=== PATIENT | female | born 1980 ===

== ENCOUNTER 2018-01-13 15:26 | Inpatient (IN) | payer MEDICAID ==
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
[2018-01-13 23:13] VITALS: O2SAT 100
[2018-01-14] MEDS ORDERED: Magnesium Hydroxide Susp 30 ml UD PO PRN (00:55)
[2018-01-14] MEDS ORDERED: DiphenhydrAMINE 50 mg/ml Inj IM PRN (00:55)
[2018-01-14] MEDS ORDERED: Alum-Mag Hydrox-Simethicone Susp (30 mL) PO PRN (00:55)
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
[2018-01-14 01:40] LABS: BARBITURATES, UR NEGATIVE (NEGATIVE); BENZODIAZEPINES, UR NEGATIVE (NEGATIVE); OPIATES, UR NEGATIVE (NEGATIVE); PHENCYCLIDINE, UR NEGATIVE (NEGATIVE)
[2018-01-14 06:20] LABS: BASO # 0.1 K/uL (0.0-0.2); BASO % 1.1 % (0.0-2.0); EOS # 0.1 K/uL (0.0-0.7); EOS % 1.9 % (0.0-4.0); HEMOGLOBIN 11.6 g/dL (12.0-16.0); LYMPH # 2.2 K/uL (1.0-4.3); LYMPH % 35.1 % (20.0-40.0); MEAN CELL VOLUME 94.6 fl (81.0-99.0); MEAN CORPUSCULAR HEMOGLOBIN 32.4 pg (27.0-31.0); MEAN CORPUSCULAR HGB CONC 34.3 g/dL (33.0-37.0); MEAN PLATELET VOLUME 7.9 fl (7.2-11.7); MONO # 0.5 K/uL (0.0-0.8); MONO % 7.8 % (0.0-10.0); NEUT # 3.4 K/uL (1.8-7.0); NEUT % 54.1 % (50.0-75.0); NRBC % 0.1 % (0.0-0.0); RBC 3.59 Mil/uL (3.80-5.20); RED CELL DISTRIBUTION WIDTH 12.9 % (11.5-14.5); WHITE BLOOD COUNT 6.3 K/uL (4.8-10.8)
[2018-01-14 06:32] LABS: ALB/GLOB RATIO 1.1 (1.0-2.1); ALBUMIN 3.5 g/dL (3.5-5.0); ALT/SGPT 20 U/L (9-52); AST/SGOT 21 U/L (14-36); BLOOD UREA NITROGEN 22 mg/dl (7-17); CALCIUM 9.3 mg/dL (8.4-10.2); GFR NON-AFRICAN AMERICAN > 60; HDL CHOLESTEROL 57 MG/DL (30-70)
[2018-01-14 06:36] LABS: T4 5.17 ug/dl (5.5-11.0)
[2018-01-14 07:30] LABS: LDL CHOLESTEROL 55 mg/dL (0-129)
--- NOTE | 2018-01-14 07:54 | RAD ---
Date of service: 01/13/2018 PROCEDURE: BILATERAL ANKLES RADIOGRAPHS HISTORY: possible fracture COMPARISON: None available. TECHNIQUE: AP oblique and lateral views of the bilateral ankles have been submitted for interpretation. FINDINGS: Cast obscures fine bone and soft-tissue detail. At the left ankle, there is a fracture identified at the medial left ankle seen in the frontal projection best. Oblique projection is too steep to evaluate. The lateral mortise with the medial and superior mortise appearing unremarkable. No subluxation or dislocation appreciated. At the right ankle, there is no acute fracture and there is no evidence of dislocation or subluxation. Deformity of the distal fibula may reflect old healed fracture though this is not definite. No destructive bony lesion is appreciable and local soft tissues appear unremarkable the ankle mortise appears normal. Radiodensities in the patient's sock obscure fine bony and soft-tissue detail somewhat. IMPRESSION: 1. There is a fracture of the medial ankle which is difficult to localize due to its appearance only in the frontal view. No subluxation or dislocation. Repeat radiograph without cast or CT is advised for added characterization. 2. No fracture or dislocation identified at the right ankle.
--- NOTE | 2018-01-14 07:58 | RAD ---
Date of service: 01/13/2018 PROCEDURE: Left Ankle Radiographs. HISTORY: r/o fracture COMPARISON: Bilateral ankle radiographs 01/13/2018 6:51 p.m.. FINDINGS: BONES: A comminuted, articular, nondisplaced fracture of the navicular bone is appreciated in multiple projections. No definite dislocation or subluxation. Remaining bony elements throughout the left ankle appear intact. JOINTS: No subluxation or dislocation identified. Ankle mortise appears normal. Dome of the talus is unremarkable appearing. SOFT TISSUES: Medial ankle soft tissue edema is identified. OTHER FINDINGS: None. IMPRESSION: Comminuted, articular fracture left navicular bone with left ankle otherwise remarkable for medial soft tissue edema. No dislocation or subluxation.
--- NOTE | 2018-01-14 08:10 | RAD ---
Date of service: 01/13/2018 PROCEDURE: Left Foot Radiographs. HISTORY: r/o fracture COMPARISON: None. FINDINGS: BONES: Comminuted fracture of the navicular bone is appreciated involving the articular surfaces at least with the talus though likely at articulation with the medial and middle cuneiform bones as well. A marker focuses attention to lateral midfoot anatomy which appears unremarkable in all projections. Limited medial ankle/midfoot soft tissue edema is identified. JOINTS: No subluxation or dislocation identified. SOFT TISSUES: As above. OTHER FINDINGS: None. IMPRESSION: Complex comminuted fracture of the navicular bone is identified with local soft tissue edema extending into the medial midfoot soft tissues. No definite additional fracture identified throughout the remainder of the left foot including lateral midfoot. No dislocation or subluxation. If clinical concern for additional fracture remains, then follow-up CT or MRI should be considered.
[2018-01-14] MEDS ORDERED: PAROXETINE 37.5 MG PO SCH (09:00)
[2018-01-14] MEDS ORDERED: BUPROPION 300 MG PO SCH (09:00)
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
[2018-01-14] MEDS: buPROPion SR 150 MG TABLET PO SCH ×2 (10:44→18:01)
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
--- NOTE | 2018-01-14 13:57 | CARD ---
APPROVED REPORT Date of service: 01/14/2018 EKG Measurement Heart [id number] <Conclusion> Normal sinus rhythm Normal ECG
--- NOTE | 2018-01-14 14:15 | CT ---
Date of service: 01/13/2018 PROCEDURE: LEFT ANKLE CT WITHOUT CONTRAST HISTORY: focus on left foot COMPARISON: Left ankle radiographs dated 01/13/2018. TECHNIQUE: A volumetric CT acquisition through the left ankle was performed without intravenous contrast as requested. Multiplanar reformatted series have been submitted for interpretation as well. Contrast Dose: None Radiation dose:Total exam DLP = 278.29 mGy-cm. This CT exam was performed using one or more of the following dose reduction techniques: Automated exposure control, adjustment of the mA and/or kV according to patient size, and/or use of iterative reconstruction technique. FINDINGS: There is a extensive, comminuted articular fracture identified involving the left navicular bone with limited inferior distraction of the major fracture fragment inferolaterally. However, the amount of comminution is more prominent at the medial portion of the navicular bone than lateral segment. Fracture affects articulations with all 3 cuneiform bones as well as the talus. No dislocation identified. There is also a comminuted but nondisplaced fracture identified involving the lateral cuneiform bone affecting articulations with the navicular, cuboid and 4th metatarsal bones. Moderate soft tissue edema is seen surrounding the foot and lower ankle soft tissues with dorsal foot and anterior ankle soft tissues most affected. Ankle mortise appears intact. IMPRESSION: Complex comminuted fractures identified involving the left navicular bone as well as the lateral cuneiform bone as discussed above. Fractures appear predominantly nondisplaced with limited inferior lateral distraction of the dominant fracture fragment at the lateral portion of the navicular bone. Both fractured bones affect articular surfaces as described above. No dislocation or subluxation identified.
--- NOTE | 2018-01-14 15:18 | CP.PCM.CON ---
History of Present Illness - History of Present Illness History of Present Illness: Reason for Consult: per hospital protocol HPI: 37 year old undomiciled female recently discharged from [facility] for aggressive behavior and medication seeking behavior, now admitted to [facility] psych for suicidal ideation. ROS: per HPI all other systems reviewed and negative Past Patient History - Past Social History Smoking Status: Light Smoker < 10 Cigarettes Daily - CARDIAC Hx Hypertension: No - PULMONARY Hx Tuberculosis: No - NEUROLOGICAL Hx Seizures: No - HEENT Hx HEENT Problems: No - RENAL Hx Chronic Kidney Disease: No - HEMATOLOGICAL/ONCOLOGICAL Hx Human Immunodeficiency Virus (HIV): No - INTEGUMENTARY Hx Dermatological Problems: No - MUSCULOSKELETAL/RHEUMATOLOGICAL Hx Arthritis: Yes Hx Fractures: Yes - GENITOURINARY/GYNECOLOGICAL Hx Sexually Transmitted Disorders: No - PSYCHIATRIC Hx Anxiety: Yes Hx Bipolar Disorder: Yes Hx Depression: Yes Hx Post Traumatic Stress Disorder: Yes - SURGICAL HISTORY Hx Tonsillectomy: Yes - ANESTHESIA Hx Anesthesia: Yes Hx Anesthesia Reactions: No Hx Malignant Hyperthermia: No Meds Allergies/Adverse Reactions: Allergies Allergy/AdvReac Type Severity Reaction Status Date / Time No Known Allergies Allergy Verified 01/13/18 15:31 - Medications Medications: Current Medications Acetaminophen (Tylenol 325mg Tab) 650 mg PO Q4 PRN PRN Reason: Pain, moderate (4-7) Al Hydrox/Mg Hydrox/Simethicone (Maalox Plus 30 Ml) 30 ml PO Q4 PRN PRN Reason: Dyspepsia Bupropion HCl (Wellbutrin Sr 150 Mg) 150 mg PO BID [facility] Last Admin: 01/14/18 10:44 Dose: 150 mg Diphenhydramine HCl (Benadryl) 50 mg IM Q6 PRN PRN Reason: Extrapyramidal S/S Unable PO Diphenhydramine HCl (Benadryl) 50 mg PO Q6 PRN PRN Reason: Extrapyramidal Symptoms Diphenhydramine HCl (Benadryl) 50 mg PO HS PRN PRN Reason: Sleep Gabapentin (Neurontin) 600 mg PO TID [facility] Last Admin: 01/14/18 14:01 Dose: 600 mg Haloperidol (Haldol) 5 mg PO Q4 PRN PRN Reason: Agitation Haloperidol Lactate (Haldol) 5 mg IM Q4 PRN PRN Reason: Agitation, Unable to Take PO Lorazepam (Ativan) 2 mg IM Q4 PRN PRN Reason: Anxiety/Agitation,Unable PO Lorazepam (Ativan) 1 mg PO Q8 PRN PRN Reason: Anxiety Last Admin: 01/14/18 10:10 Dose: 1 mg Magnesium Hydroxide (Milk Of Magnesia) 30 ml PO HS PRN PRN Reason: Constipation Nicotine (Nicoderm Cq) 1 patch TD DAILY [facility] Last Admin: 01/14/18 10:43 Dose: 1 patch Paroxetine HCl (Paxil) 40 mg PO DAILY [facility] Last Admin: 01/14/18 10:44 Dose: 40 mg Tramadol HCl (Ultram) 50 mg PO Q8 PRN PRN Reason: Pain, severe (8-10) Physical Exam - Constitutional Appears: Non-toxic, No Acute Distress - Head Exam Head Exam: ATRAUMATIC, NORMOCEPHALIC - Eye Exam Eye Exam: EOMI, Normal appearance, PERRL - ENT Exam ENT Exam: Mucous Membranes Moist, Normal Oropharynx - Respiratory Exam Respiratory Exam: Clear to Auscultation Bilateral, NORMAL BREATHING PATTERN - Cardiovascular Exam Cardiovascular Exam: REGULAR RHYTHM, RRR, +S1, +S2 - GI/Abdominal Exam GI & Abdominal Exam: Normal Bowel Sounds, Soft - Extremities Exam Extremities exam: Positive for: normal capillary refill, pedal pulses present - Back Exam Back exam: absent: CVA tenderness (L), CVA tenderness (R) - Neurological Exam Neurological exam: Alert, Oriented x3 - Psychiatric Exam Psychiatric exam: Normal Affect, Normal Mood - Skin Skin Exam: Dry, Warm Results - Vital Signs Recent Vital Signs: Last Vital Signs Temp 98.5 F 01/14/18 05:35 Pulse 75 01/14/18 05:35 Resp 18 01/14/18 05:35 BP 97/74 L 01/14/18 05:35 Pulse Ox 100 01/14/18 12:37 - Labs Result Diagrams: 01/14/18 06:00 01/14/18 06:00 Labs: Laboratory Results - last 24 hr 01/13/18 01/14/18 01/14/18 23:24 06:00 06:00 WBC 6.3 RBC 3.59 L Hgb 11.6 L Hct 33.9 L MCV 94.6 MCH 32.4 H MCHC 34.3 RDW 12.9 Plt Count 317 MPV 7.9 Neut % (Auto) 54.1 Lymph % (Auto) 35.1 [place] % (Auto) 7.8 Eos % (Auto) 1.9 Baso % (Auto) 1.1 Neut # (Auto) 3.4 Lymph # (Auto) 2.2 [place] # (Auto) 0.5 Eos # (Auto) 0.1 Baso # (Auto) 0.1 Sodium 139 Potassium 4.4 Chloride 104 Carbon Dioxide 27 Anion Gap 12 BUN 22 H Creatinine 0.6 L Est GFR ( Amer) > 60 Est GFR (Non-Af Amer) > 60 Random Glucose 91 Calcium 9.3 Total Bilirubin 0.1 L AST 21 ALT 20 Alkaline Phosphatase 45 Total Protein 6.9 Albumin 3.5 Globulin 3.3 Albumin/Globulin Ratio 1.1 Triglycerides 150 H Cholesterol 127 LDL Cholesterol Direct 55 HDL Cholesterol 57 Thyroxine (T4) 5.17 L TSH 3rd Generation 1.18 Urine Opiates Screen Negative Urine Methadone Screen Negative Ur Barbiturates Screen Negative Ur Phencyclidine Scrn Negative Ur Amphetamines Screen Negative U Benzodiazepines Scrn Negative U Oth Cocaine Metabols Negative U Cannabinoids Screen Negative Assessment & Plan - Assessment and Plan (Free Text) Plan: 37 year old undomiciled female recently discharged from [facility] for aggressive behavior and medication seeking behavior, now admitted to [facility] psych for suicidal ideation. Suicidal Ideation - Management per psych
--- NOTE | 2018-01-15 07:54 | PCM.PYCHPN ---
Psychiatric Progress Note - Psychiatric Progress Note Patient seen today, length of contact: Pt evaluated, case discussed w/ team, chart reviewed Patient Chief Complaint: "I was feeling suicidal." Problems Identified/Issues Discussed: Pt continues to report feeling depressed, anxious and hopeless at times. She denies acute suicidal ideation/plan/intent. She spends most of her time in her room. Patient encouraged to participate in groups. No acute behavioral i ssues. No adverse effects to medications reported. Medication Change: No Medical Record Reviewed: Yes Consults ordered or reviewed: Medicine consult Mental Status Examination - Cognitive Function Orientation: Person, Place, Situation, Time Memory: Intact Attention: WNL Concentration: WNL Association: WNL Fund of Knowledge: WN Decription of patient's judgement and insights: Improving I/J - Mood Mood: Depressed - Affect Affect: Constricted, Depressed - Speech Speech: Appropriate - Formal Thought Process Formal Thought Process: No Impairment Psychotic Thoughts and Behaviors: Denies AH/VH/paranoia/delusions - Suicidal Ideation Suicidal Ideation: No - Homicidal Ideation Homicidal Ideation: No Goal/Treatment Plan - Goal/Treatment Plan Need for Continued Stay: Remain at risks for inpatient hospitalization, Severe depression anxiety Progress Toward Problem(s) and Goals/Treatment Plan: Major Depressive Disorder -Individual and group therapy -Continue Wellbutrin and Paxil -Nicotine patch -Medicine consult -Disposition planning Estimated Date of D/C: 01/19/18 - Smoking Cessation Smoking Cessation Initiated: Yes
[2018-01-15] MEDS: buPROPion SR 150 MG TABLET PO SCH ×2 (08:37→16:35)
[2018-01-16] MEDS: buPROPion SR 150 MG TABLET PO SCH ×2 (08:56→17:57)
--- NOTE | 2018-01-16 10:17 | PCM.PYCHPN ---
Psychiatric Progress Note - Psychiatric Progress Note Patient seen today, length of contact: Pt evaluated, case discussed w/ team, chart reviewed Patient Chief Complaint: "I was feeling suicidal." Problems Identified/Issues Discussed: Pt continues to report feeling depressed, anxious and hopeless. She denies acute suicidal ideation/plan/intent. She reports poor sleep and states the Doxepin was helpful in the past for sleep. Patient encouraged to participate in groups. No acute behavioral issues. No adverse effects to medications reported. Medication Change: Yes (Start Doxepin) Medical Record Reviewed: Yes Consults ordered or reviewed: Medicine consult Mental Status Examination - Cognitive Function Orientation: Person, Place, Situation, Time Memory: Intact Attention: WNL Concentration: WNL Association: WNL Fund of Knowledge: [facility] Decription of patient's judgement and insights: Improving I/J - Mood Mood: Depressed - Affect Affect: Constricted, Depressed - Speech Speech: Appropriate - Formal Thought Process Formal Thought Process: No Impairment Psychotic Thoughts and Behaviors: Denies AH/VH/paranoia/delusions - Suicidal Ideation Suicidal Ideation: No - Homicidal Ideation Homicidal Ideation: No Goal/Treatment Plan - Goal/Treatment Plan Need for Continued Stay: Remain at risks for inpatient hospitalization, Severe depression anxiety Progress Toward Problem(s) and Goals/Treatment Plan: Major Depressive Disorder -Individual and group therapy -Continue Wellbutrin and Paxil -Start Doxepin HS -Nicotine patch -Medicine consult -Podiatry consult -Disposition planning Estimated Date of D/C: 01/19/18
[2018-01-16 19:04] LABS: URINE BILIRUBIN NEGATIVE (NEGATIVE); URINE BLOOD NEGATIVE (NEGATIVE); URINE CLARITY CLEAR (Clear); URINE COLOR STRAW (YELLOW); URINE GLUCOSE (UA) NEG (Normal); URINE LEUKOCYTE ESTERASE NEG Leu/uL (Negative); URINE PROTEIN NEGATIVE (NEGATIVE); URINE UROBILINOGEN 0.2-1.0 mg/dL (0.2-1.0)
[2018-01-17] MEDS: buPROPion SR 150 MG TABLET PO SCH ×2 (09:13→16:15)
--- NOTE | 2018-01-17 09:53 | PCM.PYCHPN ---
Psychiatric Progress Note - Psychiatric Progress Note Patient seen today, length of contact: Pt evaluated, case discussed w/ team, chart reviewed Patient Chief Complaint: Depression Problems Identified/Issues Discussed: Pt continues to report feeling depressed and anxious, but is more hopeful and goal oriented. She denies acute SI/HI. She continues to report poor sleep at night. No adverse effects to medications reported. Medication Change: Yes (Increase Wellbutrin) Medical Record Reviewed: Yes Consults ordered or reviewed: Medicine consult Mental Status Examination - Cognitive Function Orientation: Person, Place, Situation, Time Memory: Intact Attention: WNL Concentration: WNL Association: WNL Fund of Knowledge: [facility] Decription of patient's judgement and insights: Improving I/J - Mood Mood: Depressed - Affect Affect: Constricted, Depressed - Speech Speech: Appropriate - Formal Thought Process Formal Thought Process: No Impairment Psychotic Thoughts and Behaviors: Denies AH/VH/paranoia/delusions - Suicidal Ideation Suicidal Ideation: No - Homicidal Ideation Homicidal Ideation: No Goal/Treatment Plan - Goal/Treatment Plan Need for Continued Stay: Remain at risks for inpatient hospitalization, Severe depression anxiety Progress Toward Problem(s) and Goals/Treatment Plan: Major Depressive Disorder -Individual and group therapy -Increase Wellbutrin -Continue Paxil and Doxepin -Nicotine patch -Medicine consult -Podiatry consult -Disposition planning Estimated Date of D/C: 01/19/18
[2018-01-18 05:55] VITALS: PULSE 78
--- NOTE | 2018-01-18 08:25 | PCM.PYCHPN ---
Psychiatric Progress Note - Psychiatric Progress Note Patient seen today, length of contact: Pt evaluated, case discussed w/ team, chart reviewed Patient Chief Complaint: Depression Problems Identified/Issues Discussed: Pt continues to report feeling depressed and is worried about her social stressors and her foot. She denies acute AH/VH/SI/HI and is more goal oriented. She continues to report poor sleep at night. No adverse effects to medications reported. Medication Change: Yes (Increase Wellbutrin) Medical Record Reviewed: Yes Consults ordered or reviewed: Medicine consult Mental Status Examination - Cognitive Function Orientation: Person, Place, Situation, Time Memory: Intact Attention: WNL Concentration: WNL Association: [facility] Fund of Knowledge: [facility] Decription of patient's judgement and insights: Improving I/J - Mood Mood: Depressed - Affect Affect: Constricted, Depressed - Speech Speech: Appropriate - Formal Thought Process Formal Thought Process: No Impairment Psychotic Thoughts and Behaviors: Denies AH/VH/paranoia/delusions - Suicidal Ideation Suicidal Ideation: No - Homicidal Ideation Homicidal Ideation: No Goal/Treatment Plan - Goal/Treatment Plan Need for Continued Stay: Remain at risks for inpatient hospitalization, Severe depression anxiety Progress Toward Problem(s) and Goals/Treatment Plan: Major Depressive Disorder -Individual and group therapy -Increase Wellbutrin -Continue Paxil and Doxepin -Nicotine patch -Medicine consult -Podiatry consult -Disposition planning
[2018-01-18 15:26] VITALS: BP 144/67; RESP 20; TEMP 97.7
--- NOTE | 2018-01-18 15:49 | RAD ---
Date of service: 01/18/2018 PROCEDURE: CHEST RADIOGRAPH, 1 VIEW HISTORY: Routine COMPARISON: None available. FINDINGS: LUNGS: Clear. PLEURA: No pneumothorax or pleural fluid seen. CARDIOVASCULAR: Normal. OSSEOUS STRUCTURES: No significant abnormalities. VISUALIZED UPPER ABDOMEN: Normal. OTHER FINDINGS: None. IMPRESSION: No active disease.
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
== END 2018-01-19 16:40 | disposition home or self-care (01) | DRG 426 ==
LOC: H.ER 15:26 → H.ERHOLD 19:56 → H.STEP 01-14 00:46
PROVIDERS: ADMIT Psychiatry & Neurology Psychiatry; ATTEND Psychiatry & Neurology Psychiatry
PROC: GZHZZZZ Group Psychotherapy (ICD-10-PCS; principal; 2018-01-15)
PROC: GZ51ZZZ Individual Psychotherapy, Behavioral (ICD-10-PCS; 2018-01-15)
DX: F32.9 Major depressive disorder, single episode, unspecified (principal); F31.9 Bipolar disorder, unspecified; F43.10 Post-traumatic stress disorder, unspecified; R45.851 Suicidal ideations; S92.252A Displaced fracture of navicular [scaphoid] of left foot, initial encounter for closed fracture; X58.XXXA Exposure to other specified factors, initial encounter; Y93.9 Activity, unspecified; Y92.9 Unspecified place or not applicable; S93.401A Sprain of unspecified ligament of right ankle, initial encounter; Z59.0 Homelessness; Z72.0 Tobacco use; Z76.5 Malingerer [conscious simulation]; Z82.5 Family history of asthma and other chronic lower respiratory diseases; F41.9 Anxiety disorder, unspecified; M47.9 Spondylosis, unspecified; Z79.899 Other long term (current) drug therapy

== ENCOUNTER 2018-02-08 10:18 | Day surgery (SDC) | payer MEDICAID ==
[2018-02-03 10:32] VITALS: BMI 35.4
[~2018-02-08 10:18] MED LIST: Bupivacaine 0.5% Inj(30mL) ONE; Lidocaine 1% Inj (20ml) ONE
[2018-02-08 11:18] VITALS: RESP 18
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
--- NOTE | 2018-02-08 11:36 | CP.SDSHP ---
Same Day Surgery H & P - History Proposed Procedure: Left foot ORIF with application of external fixation Pre-Op Diagnosis: Left foot closed navicular comminuted fracture - Allergies Allergies: Allergies No Known Allergies Allergy (Verified 02/08/18 10:36) - Physical Exam Vital Signs: Vital Signs 02/08/18 02/08/18 11:16 11:21 Temperature 98.4 F Pulse Rate 76 76 Respiratory 18 Rate Blood Pressure 119/78 O2 Sat by Pulse 99 Oximetry Neuro: WNL Heart: WNL Lungs: WNL GI: WNL - Impression Pt. Evaluated Today:Candidate for Anesthesia & Procedure: Yes - Date & Time Date: 02/08/18 Time: 11:36 Short Stay Discharge - Short Stay Discharge Admitting Diagnosis/Reason for Visit: S92.255,S92.225 Disposition: HOME/ ROUTINE Additional Instructions (Diet, Activity): -Patient in good/stable condition for discharge home -Pt to resume medications per medical reconciliation -Resume regular diet -Please keep dressing clean, dry, & intact to surgical site -Use plastic bag over bandage for showering -Remain nonweightbearing to left lower extremity -Wear post op shoe at all times when ambulating -Call clinic if you see signs of infection (redness, swelling, malodor) -Please make an appointment to see Dr. Vallejo in office/clinic within 1 week for post-op check Progress Note/Discharge Note with Instructions: - Patient evaluated bedside in recovery s/p left navicular fracture external fixation. - After surgical procedure patient in NAD - (+) Void, (+) Appetite - Capillary refill time <3s and NVS intact. - Patient denies complaints at this time. - Post operative instructions and plan of care explained to patient at length. - Patient. acknowledges verbal understanding. - Patient stable for DC per podiatric surgery
[2018-02-08] MEDS ORDERED: ceFAZolin 2 GM in Sodium Chloride 0.9% 100 ML IVPB ONE (11:49)
[2018-02-08] MEDS ORDERED: Bupivacaine 0.5% Inj(30mL) IJ ONE (11:49)
[2018-02-08] MEDS ORDERED: Sodium Chloride 0.9% 1,000 ML IV SCH (12:00)
[2018-02-08] MEDS ORDERED: Propofol 10 mg/ml Inj (20 ML) ONE (13:13)
[2018-02-08] MEDS ORDERED: Rocuronium 10 mg/ml (5 ml) ONE (13:14)
[2018-02-08] MEDS ORDERED: Lidocaine 4% (Laryng-O-Jet) Kit MM ONE (13:14)
[2018-02-08] MEDS ORDERED: Midazolam 2 MG/2 ML VIAL ONE (13:14)
[2018-02-08] MEDS ORDERED: ePHEDrine 50 mg/ml Inj ONE ×2 (13:14→14:01)
[2018-02-08] MEDS ORDERED: Succinylcholine 200 mg/10 ml Inj IV ONE (13:17)
[2018-02-08] MEDS ORDERED: Ropivacaine 0.5% 30ML IV ONE ×2 (13:30→15:19)
[2018-02-08] MEDS ORDERED: Lactated Ringer's 1,000 ML IV ONE (13:30)
[2018-02-08] MEDS ORDERED: Dexamethasone 4 mg/1 ml ONE (14:30)
[2018-02-08] MEDS ORDERED: Bacitracin Ointment 30 GM TUBE ONE (14:57)
--- NOTE | 2018-02-08 15:42 | PCM.SURG1 ---
Surgeon's Initial Post Op Note - Surgeon's Notes Surgeon: Dr. Paul Vallejo, DPM Court Collections Officer: Dr. Gage Carlos PGY-3; Dr. Melita Barron PGY-3; Dr. Jessica Whalen PGY-3 Type of Anesthesia: General Endo, Block Regional (saphenous and popliteal) Anesthesia Administered By: Dr. Carrie MD Pre-Operative Diagnosis: 1) comminuted displaced fracture of navicular 2) displaced fracture of lateral cuneiform all left foot Operative Findings: see op report Post-Operative Diagnosis: 1) comminuted displaced fx of navicular left foot. 2) displaced fx of lateral cuneiform left foot. 3) possible fracture of talar head/neck left foot Operation Performed: 1) distraction of comminuted navicular fracture inlcuding talonavicular and navicular-medial cuneiform joint using mini external fixator left foot. 2) ORIF lateral cuneiform fx using screw (3.0 x 26mm) Specimen/Specimens Removed: none Estimated Blood Loss: EBL {In ML}: 2 Blood Products Given: N/A Drains Used: No Drains Post-Op Condition: Good Date of Surgery/Procedure: 02/08/18 Time of Surgery/Procedure: 13:00
[2018-02-08] MEDS ORDERED: Oxycodone/Acetaminophen 5/325 mg Tab PO PRN ×2 (15:45)
[2018-02-08] MEDS ORDERED: Lactated Ringer's 1,000 ML IV SCH (16:15)
--- NOTE | 2018-02-08 16:22 | PCM.ANESB7 ---
Adductor Canal Block - Adductor Canal Block Date of Procedure: 02/08/18 Anesthiologist: Dr. Ocampo Pre-Procedure Diagnosis: S/P ORIF left foot Post-Procedure Diagnosis: S/P ORIF left foot Procedure Performed: Adductor Canal Block Left - Procedure Adductor Canal Block: The procedure was explained to the patient that it is for the post-operative pain management. Consent was obtained after a thorough discussion with the patient regarding the benefits and possible complications of local anesthetic adductor canal block of the femoral nerve. Standard monitors, as defined by the ASA, were applied to the patient. Time-out was held with the circulating nurse to confirm the appropriate block. After the surgery while still under general anesthesia, the patient in supine position with and the operative leg was flexed slightly at the knee and externally rotated as needed, and was kept anatomically stable. The mid-thigh of the left lower extremity was exposed. The ultrasound transducer was then applied transversely along the medial aspect, about midway down the thigh and the femoral artery and vein were identified in appropriate relation with the sartorius muscle. At this time, the femoral nerve was visualized lateral to the femoral artery within the canal. After thorough identification, this area area was prepped with Chloroprep solution. At this point, a #20 gauge Stimuplex 4-inch needle was inserted in-plane in a [id number] orientation, and advanced toward the femoral nerve. Advancement was performed carefully under direct ultrasound visualization. After negative aspiration, 5cc of 0.5% ropivacaine was injected and this was followed with 10cc of 0.5% ropivacaine. Under ultrasound guidance the local anesthetics were observed spreading around the femoral nerve. The needle was removed intact and sterile dressing was applied. The patient had stable vital signs, was conscious and in no apparent distress. The patient tolerated the femoral nerve block well with stable vital signs and was prepared for subsequent surgery
--- NOTE | 2018-02-08 16:26 | PCM.ANESB2 ---
Popliteal Nerve Block - Popliteal Nerve Block Date of Procedure: 02/08/18 Anesthesiologist: Dr. Ocampo Pre-Procedure Diagnosis: S/P ORIF left foot Post-Procedure Diagnosis: S/P ORIF left foot Procedure Performed: Popliteal Nerve Block Left - Procedure Popliteal Nerve Block: This procedure was explained to the patient that it is for post-operative pain management. Consent was obtained after a thorough discussion with the patient regarding the benefits and possible complications of local anesthetic block of the sciatic nerve at the popliteal level. The patient was brought to the operating room and standard monitors are applied. Time-out was held with the circulating nurse to confirm the correct surgery and the appropriate block. After the surgery while still under general anesthesia, patient's operative leg was gently raised and supported and the groove in between the biceps femoris and vastus lateralis muscles was carefully palpated. The skin approximately 8cm above the popliteal crease was then marked. The ultrasound transducer was then applied to the posterior thigh approximately 8cm above the popliteal crease in the transverse plane and the sciatic nerve before its division was visualized lateral to the popliteal artery and in between the bicep femoris and semimembranosus/semitendinosus muscles. After identification, the lateral porti on of the thigh was prepped with Chloraprep solution. At this point, a # 20 gauge Stimuplex insulated 4 inch needle was inserted into pre-marked area and advanced in a perpendicular direction. The needle was inserted above the ultrasound transducer in-plane towards the sciatic nerve in a [id number] direction. Needle advancement was performed carefully under direct ultrasound visualization. Nerve stimulator was used and dorsiflexion of the left foot was elicited at a current of 0.3 MA. After repeated negative aspiration, 5cc of 0.5% ropivacaine was injected and this was flowed with 20cc of 0.5% ropivacaine. Under ultrasound guidance the local anesthetics were observed surrounding sciatic nerve . The needle was removed intact and sterile dressing was applied. The patient tolerated the popliteal nerve block well with stable vital signs and was subsequently awaken from anesthesia. Then transported to PACU.
--- NOTE | 2018-02-08 17:10 | RAD ---
Date of service: 02/08/2018 PROCEDURE: Fluoroscopic assistance in excess of 1 hour. HISTORY: LEFT FOOT COMPARISON: None TECHNIQUE: Standard protocol for this study/examination. FINDINGS: Total fluoroscopic time (continuous mode) utilized during the procedure 134.9 seconds. IMPRESSION: Submitted images from the current procedure: 12.0
--- NOTE | 2018-02-08 17:35 | RAD ---
Date of service: 02/08/2018 PROCEDURE: Left Foot Radiographs. HISTORY: s/p left foot surgery COMPARISON: None. FINDINGS: BONES: Anatomic alignment of major fracture fragments of the scaphoid. No evidence of orthopedic hardware failure. JOINTS: Normal. SOFT TISSUES: Normal. OTHER FINDINGS: None. IMPRESSION: Satisfactory postoperative status.
[2018-02-09 00:48] VITALS: BP 126/66; PULSE 102; TEMP 97.8; O2SAT 10
--- NOTE | 2018-02-12 10:08 | OP ---
PROCEDURE DATE: 02/08/2018 PREOPERATIVE DIAGNOSES: 1. Comminuted displaced fracture of navicular bone, left foot. 2. Displaced fracture of lateral cuneiform bone, left foot. POSTOPERATIVE DIAGNOSES: 1. Comminuted displaced fracture of navicular bone, left foot. 2. Displaced fracture of lateral cuneiform bone, left foot. 3. Possible fracture of tailor head, left foot. PROCEDURES PERFORMED: 1. Distraction of comminuted navicular fracture using mini external fixator, left foot. 2. Open reduction with internal fixation of lateral cuneiform fracture using screw fixation, left foot. SURGEON: Paul Vallejo DPM ASSISTANTS: TABBY LindseyM, PGY-3 ;Shanon Barron DPM, PGY-3; Fanta Whalen, PGY-3, DPM ANESTHESIA: Popliteal block and adductor canal block. CONTROL SYSTEMS SPECIALIST: Tonya Butler MD INDICATION: The patient is a 37-year-old female with the above-mentioned diagnoses. The patient has been seen in the [facility] with Dr. Vallejo. Of note, the patient did suffer an injury to her left foot approximately three weeks prior and now requires surgical intervention for the injury. The patient signed the consent after careful explanation of all risks, benefits, complications and alternatives for the surgical procedure. No guarantees were given nor implied. A 2 g of Ancef IV was given to the patient one and half hour prior to the procedure. NPO status was confirmed prior to bringing the patient into the operating room. PREPARATION: The patient was brought into the operating room and placed on the operating room table in supine position. A well-padded pneumatic thigh tourniquet was placed to the patient's left thigh with plenty of Webril cast padding. After induction of anesthesia, the left foot was then prepped and draped in the usual sterile manner. Esmarch bandage was utilized to exsanguinate the patient's left foot . The pneumatic thigh tourniquet was then inflated to 350 mmHg and the procedure was begun. DESCRIPTION OF PROCEDURE: PROCEDURE #1: Distraction of comminuted navicular fracture using mini external fixator of the patient's left foot: Our attention was now directed to the patient's left foot at the level of the patient's medial aspect of the mid foot. Under intraoperative fluoroscopy guidance, our landmarks were identified including the head and neck of the tailor and in addition the distal one-third of the medial cuneiform. Next, a [employer] CORETRAK mini external fixation device was then chosen with the distance between the proximal and distal pin set a distance of 15 mm. Next, using intraoperative fluoroscopy guidance, three half pins from the set were then drilled into the tailor head and body. Next, two half pins were then driven into the distal one-third of the medial cuneiform. All of these pins were driven. Stab incision in the skin directly down to the level of bone. The CORETRAK device was then placed over the pin at approximately two fingers breadth distance away from the level of skin. The device was then locked using the screwdriver provided in the kit. Under intraoperative fluoroscopy guidance, a total of 5 mm of distraction was achieved between the talonavicular and the navicular medial cuneiform joint. At this time, it did appear to be noted that there was excellent distraction of this joint with much improved articular alignment of the navicular fracture fragment. However, using intraoperative fluoroscopy in this case, it should be noted that it did appear to be possible fracture fragment especially for a new injury of the tailor head that was not appreciated on prior plain film x-ray and CT imaging from the original injury. PROCEDURE #2: Open reduction with internal fixation of lateral cuneiform, left foot: Under intraoperative fluoroscopic guidance, a stab incision was made over the dorsal aspect of the lateral cuneiform. Care was taken to avoid all vital neurovascular structures. Blunt dissection was now used down to the level of the bone and a K-wire from the cannulated set was then driven from dorsal to plantar across the transverse fracture of the lateral cuneiform. Once the correct placement of the K-wire was achieved, a screw was chosen and using standard AO principles and techniques, measuring 3.0mm x 26 mm partially threaded cannulated screw was then inserted across the fracture site with excellent correction and compression achieved. The K-wire was then removed and passed from the operative field. The surgical site was then flushed with copious amount of sterile normal saline solution and the skin was reapproximated using 4-0 nylon suture. Postoperative bandages to the pin sites included Betadine-soaked Adaptic and 4 x 4 gauze, Betadine-soaked Adaptic was then placed over the lateral cuneiform incision with gauze overlying that, Kerlix, Ami and a well-padded posterior splint with the foot held in a neutral position were then applied to the left lower extremity. POSTOPERATIVE CONDITION: The patient tolerated the procedure and anesthesia well with no apparent complications or complaints. The patient was escorted from the OR to the recovery room with vital signs stable and neurovascular structures intact to the patient's left foot. Of note, prior to leaving the operative unit, the anesthesia team did perform an adductor canal and popliteal block for pain control to the patient's left lower extremity. The patient will be strictly nonweightbearing to the left foot with crutches. The patient will follow up in the clinic with Dr. Vallejo within one week. Viviana Carlos DPM, Paul Vallejo DPM EDU
== END 2018-02-08 21:03 | disposition home or self-care (01) ==
LOC: H.OPSURG 10:18
PROVIDERS: ATTEND Podiatrist Foot & Ankle Surgery
DX: S92.252A Displaced fracture of navicular [scaphoid] of left foot, initial encounter for closed fracture (principal); S92.222A Displaced fracture of lateral cuneiform of left foot, initial encounter for closed fracture; X58.XXXA Exposure to other specified factors, initial encounter; M19.90 Unspecified osteoarthritis, unspecified site; F32.9 Major depressive disorder, single episode, unspecified; E66.9 Obesity, unspecified
CPT/HCPCS: 28465; 73630; 76001; 97161; G8978; G8979; G8980; J0330; J0690; J1100; J1170; J1885; J2001; J2250; J2405; J2704; J3010; J7120

== ENCOUNTER 2018-03-24 15:20 | Emergency (ER) | payer MEDICAID ==
[2018-03-24 15:21] VITALS: BMI 35.4
[2018-03-24 16:56] VITALS: TEMP 98.6
--- NOTE | 2018-03-24 17:49 | ED PDOC ---
Lower Extremity Pain/Injury Time Seen by Provider: 03/24/18 17:30 Chief Complaint (Nursing): Lower Extremity Problem/Injury Chief Complaint (Provider): Cellulitis History Per: Patient History/Exam Limitations: no limitations Onset/Duration Of Symptoms: Days Current Symptoms Are (Timing): Still Present Additional Complaint(s): 37 year old female presents to the ED for an evaluation of left foot pain. Patient states she had a foot surgery on February 08 and she is scheduled for another surgery on April 19. Patient was referred by the verse writer to get blood work in ED for possible infection. Otherwise, patient denies fever or chills. PMD: Paul Vallejo Past Medical History Reviewed: Historical Data, Nursing Documentation, Vital Signs Vital Signs: Last Vital Signs Temp 98.6 F 03/24/18 16:53 Pulse 98 H 03/24/18 16:53 Resp 16 03/24/18 16:53 BP 129/80 03/24/18 16:53 Pulse Ox 99 03/24/18 16:53 - Medical History PMH: Anemia (no meds), Anxiety, Arthritis, Bipolar Disorder, Depression, Fractures, Post Traumatic Stress Disorder Denies: Diabetes, Hepatitis, HIV, HTN, Chronic Kidney Disease, Seizures, Sexually Transmitted Disease - Surgical History Surgical History: Tonsillectomy - Family History Family History: States: Unknown Family Hx - Immunization History Hx Tetanus Toxoid Vaccination: No Hx Influenza Vaccination: No Hx Pneumococcal Vaccination: No - Home Medications Home Medications: Ambulatory Orders Medication Instructions Recorded Ibuprofen [Motrin Tab] 800 mg PO Q8 PRN tab 01/19/18 Amoxicillin/Clavulanate [Augmentin 875 mg PO BID 02/08/18 875 MG-125 MG Tab] Bupropion HCl [Wellbutrin Sr] 300 mg PO DAILY 02/08/18 Copper Gluconate [Copper] 2 mg PO DAILY 02/08/18 Doxepin [Sinequan] 100 mg PO HS 02/08/18 FLUoxetine [Fluoxetine HCl] 20 mg PO BID 02/08/18 Gabapentin 800 mg PO TID 02/08/18 Magnesium Oxide [Magnesium] 400 mg PO DAILY 02/08/18 Nicotine 21 mg/24 hr [Nicoderm CQ] 21 mg TD DAILY MDD 2 patch 02/08/18 PARoxetine CR [Paxil CR] 40 mg PO DAILY 02/08/18 Rivaroxaban [Xarelto] 15 mg PO DAILY 02/08/18 oxyCODONE/Acetaminophen [Percocet 1 tab PO Q6 PRN 02/08/18 5/325 mg Tab] traMADol [Ultram] 50 mg PO QID 02/08/18 Cephalexin [cephalexin] 500 mg PO QID #40 cap 03/24/18 Ciprofloxacin [Cipro] 500 mg PO BID #14 tab 03/24/18 oxyCODONE/Acetaminophen [Percocet 1 ea PO QID #16 tab 03/24/18 5/325 mg Tab] - Allergies Allergies/Adverse Reactions: Allergies Allergy/AdvReac Type Severity Reaction Status Date / Time No Known Allergies Allergy Verified 02/08/18 10:36 Review of Systems ROS Statement: Except As Marked, All Systems Reviewed And Found Negative Constitutional: Negative for: Fever, Chills Musculoskeletal: Positive for: Foot Pain (left) Physical Exam - Reviewed Nursing Documentation Reviewed: Yes Vital Signs Reviewed: Yes - Physical Exam Appears: Positive for: Well, Non-toxic, No Acute Distress Head Exam: Positive for: ATRAUMATIC, NORMAL INSPECTION, NORMOCEPHALIC Skin: Positive for: Normal Color, Warm, Dry. Negative for: Rash Cardiovascular/Chest: Positive for: Regular Rate, Rhythm. Negative for: Murmur Respiratory: Positive for: Normal Breath Sounds. Negative for: Decreased Breath Sounds, Wheezing, Respiratory Distress Extremity: Positive for: Tenderness (left foot medial malleolus), Other (surgi alesha hardwire placed externally on left foot) Neurologic/Psych: Positive for: Alert, Oriented (x3) - Laboratory Results Result Diagrams: 03/24/18 19:13 03/24/18 19:13 - ECG O2 Sat by Pulse Oximetry: 99 (RA) Pulse Ox Interpretation: Normal Medical Decision Making Medical Decision Making: Time: 1740 Initial Impression: left foot pain Initial Plan: CMP CBC w/ Differential Culture Blood Urinalysis Reevaluation Scribe Attestation: Documented by Torey Alvarado, acting as a scribe for Hayden Reed PA-C. Provider Scribe Attestation: All medical record entries made by the Scribe were at my direction and personally dictated by me. I have reviewed the chart and agree that the record accurately reflects my personal performance of the history, physical exam, medical decision making, and the department course for this patient. I have also personally directed, reviewed, and agree with the discharge instructions and disposition. Disposition - Clinical Impression Clinical Impression: Cellulitis - Patient ED Disposition Is Patient to be Admitted: No Comment: Discussed case with podiatry resident; pt will follow up with podiatry clinic on ThursdayMar 29 and patient is aware of this; rx cipro and keflex; percocet prn Doctor Will See Patient In The: Office Counseled Patient/Family Regarding: Studies Performed, Diagnosis, Need For Followup, Rx Given - Disposition Disposition: Routine/Home Disposition Time: 20:28 Condition: STABLE Prescriptions: Cephalexin [cephalexin] 500 mg PO QID #40 cap Ciprofloxacin [Cipro] 500 mg PO BID #14 tab oxyCODONE/Acetaminophen [Percocet 5/325 mg Tab] 1 ea PO QID #16 tab Forms: [facility] ([place]i)
[2018-03-24] MEDS ORDERED: Morphine 4 MG/ML VIAL IVP ONE (17:50)
[2018-03-24] MEDS ORDERED: ceFAZolin IV 1 gm in Dextrose 1 GM/50 ML BAG IVPB STA (17:54)
[2018-03-24] MEDS ORDERED: Morphine 4 MG/ML VIAL ONE (17:57)
[2018-03-24] MEDS ORDERED: ceFAZolin IV 1 gm in Dextrose 1 GM/50 ML BAG IVPB ONE (17:58)
[2018-03-24 19:20] LABS: BASO # 0.1 K/uL (0.0-0.2); BASO % 0.9 % (0.0-2.0); EOS # 0.1 K/uL (0.0-0.7); EOS % 0.6 % (0.0-4.0); HEMOGLOBIN 11.9 g/dL (12.0-16.0); LYMPH % 24.2 % (20.0-40.0); MEAN CELL VOLUME 90.6 fl (81.0-99.0); MEAN CORPUSCULAR HEMOGLOBIN 29.9 pg (27.0-31.0); MEAN PLATELET VOLUME 7.4 fl (7.2-11.7); MONO # 0.8 K/uL (0.0-0.8); MONO % 9.2 % (0.0-10.0); NEUT # 5.5 K/uL (1.8-7.0); NEUT % 65.1 % (50.0-75.0); RBC 3.98 Mil/uL (3.80-5.20); RED CELL DISTRIBUTION WIDTH 12.4 % (11.5-14.5); WHITE BLOOD COUNT 8.4 K/uL (4.8-10.8)
[2018-03-24 19:29] LABS: SQUAMOUS EPITHIAL 22 /hpf (0-5); URINE BACTERIA MANY (<OCC); URINE BILIRUBIN NEGATIVE (NEGATIVE); URINE BLOOD NEGATIVE (NEGATIVE); URINE CLARITY CLOUDY (Clear); URINE COLOR AMBER (YELLOW); URINE GLUCOSE (UA) NEG (NEGATIVE); URINE LEUKOCYTE ESTERASE LARGE Leu/uL (Negative); URINE PROTEIN 100 mg/dL (NEGATIVE); URINE UROBILINOGEN 0.2-1.0 mg/dL (0.2-1.0)
[2018-03-24 19:48] LABS: ALB/GLOB RATIO 1.2 (1.0-2.1); ALBUMIN 4.4 g/dL (3.5-5.0); ALT/SGPT 16 U/L (9-52); AST/SGOT 20 U/L (14-36); BLOOD UREA NITROGEN 21 mg/dl (7-17); CALCIUM 9.5 mg/dL (8.4-10.2); GFR NON-AFRICAN AMERICAN > 60
[2018-03-24 20:53] VITALS: BP 117/76; PULSE 73; RESP 17; O2SAT 100
== END 2018-03-24 20:53 | disposition home or self-care (01) ==
LOC: H.ER 15:20
DX: L03.90 Cellulitis, unspecified (principal)
CPT/HCPCS: 80053; 81003; 85025; 87040; 96374; 96375; 99284; J0690; J2270

== ENCOUNTER 2018-04-14 12:15 | Emergency (ER) | payer MEDICAID ==
[2018-04-14 12:16] VITALS: BMI 35.4
[2018-04-14 12:46] VITALS: PULSE 92; RESP 17; TEMP 97.9; O2SAT 98
[2018-04-14 13:01] VITALS: BP 118/70
--- NOTE | 2018-04-14 13:08 | ED PDOC ---
Lower Extremity Pain/Injury Time Seen by Provider: 04/14/18 13:00 Chief Complaint (Nursing): Lower Extremity Problem/Injury Chief Complaint (Provider): Lower Extremity Problem/Injury History Per: Patient History/Exam Limitations: no limitations Onset/Duration Of Symptoms: Days Current Symptoms Are (Timing): Still Present Additional Complaint(s): Patient is a 37 y/o female with a PMHx of anemia, anxiety, arthritis, bipolar disorder, depression, post traumatic stress disorder, and fractures who presents to the ED for evaluation of left foot pain and infection ongoing for the past few days. Patient had surgery on her left foot on 02/08/2018. Patient was prescribed Keflex and Cipro on 03/24/2018, which she recently finished. Patient was also given Percocet for pain control. Patient states she took two Advil today without any relief. Has ran out of percocet. Patient has an appointment with podiatry clinic today at 1400. PCP: None Provided Past Medical History Vital Signs: Last Vital Signs Temp 97.9 F 04/14/18 12:42 Pulse 92 H 04/14/18 12:42 Resp 17 04/14/18 12:42 BP 118/70 04/14/18 13:01 Pulse Ox 98 04/14/18 12:42 - Medical History PMH: Anemia (no meds), Anxiety, Arthritis, Bipolar Disorder, Depression, Fractures, Post Traumatic Stress Disorder Denies: Diabetes, Hepatitis, HIV, HTN, Chronic Kidney Disease, Seizures, Sexually Transmitted Disease - Surgical History Surgical History: Tonsillectomy - Family History Family History: States: Unknown Family Hx - Immunization History Hx Tetanus Toxoid Vaccination: No Hx Influenza Vaccination: No Hx Pneumococcal Vaccination: No - Home Medications Home Medications: Ambulatory Orders Medication Instructions Recorded RX: Ibuprofen [Motrin Tab] 800 mg PO Q8 PRN tab 01/19/18 Amoxicillin/Clavulanate [Augmentin 875 mg PO BID 02/08/18 875 MG-125 MG Tab] Bupropion HCl [Wellbutrin Sr] 300 mg PO DAILY 02/08/18 Copper Gluconate [Copper] 2 mg PO DAILY 02/08/18 FLUoxetine [Fluoxetine HCl] 20 mg PO BID 02/08/18 Magnesium Oxide [Magnesium] 400 mg PO DAILY 02/08/18 Nicotine 21 mg/24 hr [Nicoderm CQ] 21 mg TD DAILY MDD 2 patch 02/08/18 RX: Doxepin [Sinequan] 100 mg PO HS 02/08/18 RX: Gabapentin 800 mg PO TID 02/08/18 RX: PARoxetine CR [Paxil CR] 40 mg PO DAILY 02/08/18 RX: traMADol [Ultram] 50 mg PO QID 02/08/18 Rivaroxaban [Xarelto] 15 mg PO DAILY 02/08/18 oxyCODONE/Acetaminophen [Percocet 1 tab PO Q6 PRN 02/08/18 5/325 mg Tab] Cephalexin [cephalexin] 500 mg PO QID #40 cap 03/24/18 RX: Ciprofloxacin [Cipro] 500 mg PO BID #14 tab 03/24/18 oxyCODONE/Acetaminophen [Percocet 1 ea PO QID #16 tab 03/24/18 5/325 mg Tab] Ibuprofen [Motrin] 600 mg PO Q8 PRN #21 tab 04/14/18 - Allergies Allergies/Adverse Reactions: Allergies Allergy/AdvReac Type Severity Reaction Status Date / Time No Known Allergies Allergy Verified 04/14/18 12:46 Review of Systems ROS Statement: Except As Marked, All Systems Reviewed And Found Negative Constitutional: Negative for: Fever, Chills Musculoskeletal: Positive for: Foot Pain (left) Physical Exam - Reviewed Nursing Documentation Reviewed: Yes Vital Signs Reviewed: Yes - Physical Exam Appears: Positive for: No Acute Distress Head Exam: Positive for: ATRAUMATIC, NORMAL INSPECTION, NORMOCEPHALIC Skin: Positive for: Normal Color, Warm Eye Exam: Positive for: EOMI, Normal appearance, PERRL Neck: Positive for: Normal, Painless ROM, Supple Cardiovascular/Chest: Positive for: Regular Rate, Rhythm. Negative for: Murmur Respiratory: Positive for: Normal Breath Sounds. Negative for: Respiratory Distress Gastrointestinal/Abdominal: Positive for: Normal Exam, Soft. Negative for: Tenderness Extremity: Positive for: Normal ROM, Other (hardware noted on medial aspect of left foot; mild erythema). Negative for: Pedal Edema, Deformity Neurologic/Psych: Positive for: Alert, Oriented. Negative for: Motor/Sensory Deficits - ECG O2 Sat by Pulse Oximetry: 98 (RA) Pulse Ox Interpretation: Normal - Progress ED Course And Treament: seen by podiatry resident. d/w Dr. Vallejo. Will placed in posterior splint and advised f/u on Thursday to take out pins. No Narcotic rx to be given. Medical Decision Making Medical Decision Making: Time: 1303 Plan: Podiatry Consult Scribe Attestation: Documented by Cole Rodriguez, acting as a scribe for ESTELA Smith. Provider Scribe Attestation: All medical record entries made by the Scribe were at my direction and personally dictated by me. I have reviewed the chart and agree that the record accurately reflects my personal performance of the history, physical exam, medical decision making, and the department course for this patient. I have also personally directed, reviewed, and agree with the discharge instructions and disposition. Disposition - Clinical Impression Clinical Impression: Pain, foot, left, chronic - Patient ED Disposition Is Patient to be Admitted: No Counseled Patient/Family Regarding: Studies Performed, Diagnosis, Need For Followup, Rx Given - Disposition Disposition: Routine/Home Disposition Time: 15:04 Condition: FAIR Prescriptions: Ibuprofen [Motrin] 600 mg PO Q8 PRN #21 tab PRN Reason: Pain, Moderate (4-7) Instructions: Chronic Pain (DC) - POA Present On Arrival: None
--- NOTE | 2018-04-14 13:48 | CP.PCM.CON ---
History of Present Illness - History of Present Illness History of Present Illness: Podiatry Consult Note: Dr. Vallejo 37 Year old female patient, with PMhx of bipolar disorder and depression, seen and evaluated for L foot pain. Patient is well known to podiatry clinic and 8.5 weeks s/p L foot mini-rail application secondary to comminuted navicular fracture. Patient states that she is in a lot of pain and wanted to come to the emergency room instead of the podiatry clinic as instructed because "she does not get pain medication in clinic". Patient is aware that she is undergoing surgery this Thursday the for removal of mini-rail. She states that she doesn't want any pain medications that are pills and that she wants morphine. Patient reports no trauma to the L foot. Patient denies N/V/F/CP, admits to diarrhea this morning. PMHx:Bipolar disorder, Depression PSHx: L foot surgery All: NKDA Review of Systems - Constitutional Constitutional: As Per HPI Past Patient History - Past Medical History & Family History Past Medical History?: Yes - Past Social History Smoking Status: Smoker Currrent Status Unknown - CARDIAC Hx Hypertension: No - PULMONARY Hx Respiratory Disorders: No Hx Tuberculosis: No - NEUROLOGICAL Hx Seizures: No - HEENT Hx HEENT Problems: No - RENAL Hx Chronic Kidney Disease: No - HEMATOLOGICAL/ONCOLOGICAL Hx Anemia: Yes (no meds) Hx Human Immunodeficiency Virus (HIV): No - INTEGUMENTARY Hx Dermatological Problems: No - MUSCULOSKELETAL/RHEUMATOLOGICAL Hx Arthritis: Yes Hx Fractures: Yes - GASTROINTESTINAL Hx Gastrointestinal Disorders: No - GENITOURINARY/GYNECOLOGICAL Hx Sexually Transmitted Disorders: No - PSYCHIATRIC Hx Anxiety: Yes Hx Bipolar Disorder: Yes Hx Depression: Yes Hx Post Traumatic Stress Disorder: Yes - SURGICAL HISTORY Hx Tonsillectomy: Yes - ANESTHESIA Hx Anesthesia: Yes Hx Anesthesia Reactions: No Hx Malignant Hyperthermia: No Meds Home Medications: Home Medication List Medication Instructions Recorded Confirmed Type Ibuprofen [Motrin] 600 mg PO Q8 PRN #21 tab 04/14/18 Rx Allergies/Adverse Reactions: Allergies Allergy/AdvReac Type Severity Reaction Status Date / Time No Known Allergies Allergy Verified 04/14/18 12:46 Physical Exam - Constitutional Appears: Non-toxic, No Acute Distress - Head Exam Head Exam: ATRAUMATIC, NORMOCEPHALIC - Extremities Exam Additional comments: Vascular: DP/PT 2/4 palpable, CFT < 3 seconds to all digits, TG warm to cool +1 edema noted to midfoot and rearfoot. Ortho: No pain upon palpation to alcon-pin areas. Medial mono-rail fixator stable and in proper position with no soft tissue encroachment, however proximal pins close to skin. Able to wiggle toes Neuro: Gross sensation intact to LLE, mild numbness to area of ex-fix Derm: Mild serous drainage appreciated to pin sites. Surgical site with skin edges well coapted. No evidence of dehiscence, no purulence, no streaking, mild increase in swelling noted to the proximal midfoot. No clinical signs of infection. - Neurological Exam Neurological exam: Alert, Oriented x3 - Psychiatric Exam Psychiatric exam: Normal Affect, Normal Mood Results - Vital Signs Recent Vital Signs: Last Vital Signs Temp 97.9 F 04/14/18 12:42 Pulse 92 H 04/14/18 12:42 Resp 17 04/14/18 12:42 BP 118/70 04/14/18 13:01 Pulse Ox 98 04/14/18 13:18 Assessment & Plan - Assessment and Plan (Free Text) Assessment: 37 Year old female patient, with PMhx of bipolar disorder and depression, seen and evaluated for L foot pain. Plan: Patient seen and evaluated with all questions and concerns addressed Discussed patient in detail with Dr. Vallejo Xrays taken on 04/05/18 reviewed and discussed with patient OTC pain medication as needed Mini-rail dressed with betadine, DSD, and posterior splint reapplied Patient plan for surgery ThursdayApril 19 for removal of mini-rail Patient expressed verbal understanding Thank you for the consult - Date & Time Date: 04/14/18 Time: 13:48
== END 2018-04-14 15:55 | disposition home or self-care (01) ==
LOC: H.ER 12:15
DX: M79.672 Pain in left foot (principal)

== ENCOUNTER 2018-04-19 08:27 | Day surgery (SDC) | payer MEDICAID ==
[2018-02-03 10:32] VITALS: BMI 35.4
--- NOTE | 2018-04-19 08:32 | CP.SDSHP ---
Same Day Surgery H & P - History Proposed Procedure: Left removal of mini rail - Allergies Allergies: Allergies No Known Allergies Allergy (Verified 04/14/18 12:46) - Physical Exam Mental Status: Alert & Oriented x3 Neuro: WNL Heart: WNL Lungs: WNL GI: WNL - Impression Impression: Pt was seen and examined in [facility]. Pt NPO status was confirmed. All pre-op testing and clearance in chart. Pt has exhausted all conservative treatment at this time and is opting for surgical intervention. Pt was ex plained procedure and post-operative course. All pt's questions were answered to satisfaction. No guarantees were made. Pt understands all risks, benefits and complications of procedure. Pt will follow-up with Dr. Vallejo in the podiatry clinic within 1 week of surgery Pt. Evaluated Today:Candidate for Anesthesia & Procedure: Yes - Date & Time Date: 04/19/18 Time: 08:31 Short Stay Discharge - Short Stay Discharge Admitting Diagnosis/Reason for Visit: S92.252D Disposition: HOME/ ROUTINE Additional Instructions (Diet, Activity): -Patient in good/stable condition for discharge home -Pt to resume medications per medical reconciliation -Resume regular diet -Please keep dressing clean, dry, & intact to surgical site -Use plastic bag over bandage for showering -Wear post op shoe at all times when ambulating -Call clinic if you see signs of infection (redness, swelling, malodor) -Please make an appointment to see Dr. Vallejo in clinic within 1 week for post-op check Progress Note/Discharge Note with Instructions: - Patient evaluated bedside in recovery s/p left foot mini rail removal - After surgical procedure patient in NAD - (+) Void, (+) Appetite - Capillary refill time <3s and NVS intact. - Patient denies complaints at this time. - Post operative instructions and plan of care explained to patient at length. - Patient. acknowledges verbal understanding. - Patient stable for DC per podiatric surgery
--- NOTE | 2018-04-19 08:34 | CP.PCM.PN ---
Subjective - Date & Time of Evaluation Date of Evaluation: 04/19/18 Time of Evaluation: 08:32 - Subjective Subjective: [facility] Progress Note: Dr. Vallejo 37 year old female patient seen and evaluated in [facility] for left foot mini rail removal. Patient states that she has been NPO since yesterday around 5pm. Patient is aware of the planned procedure today and the post operative course. Patient states that she has had anesthesia in the past and denies any adverse reactions. She denies any acute pedal complaints at this time. Denies N/V/F/SOB/CP. Objective - Constitutional Appears: Non-toxic, No Acute Distress - Head Exam Head Exam: ATRAUMATIC, NORMOCEPHALIC - Extremities Exam Additional comments: Vascular: DP/PT 2/4 palpable, CFT < 3 seconds to all digits, TG warm to cool +1 edema noted to midfoot and rearfoot. Ortho: No pain upon palpation to alcon-pin areas. Medial mono-rail fixator stable and in proper position with no soft tissue encroachment, however proximal pins close to skin. Able to wiggle toes Neuro: Gross sensation intact to LLE, mild numbness to area of ex-fix Derm: Mild serous drainage appreciated to pin sites. Surgical site with skin edges well coapted. No evidence of dehiscence, no purulence, no streaking, mild increase in swelling noted to the proximal midfoot. No clinical signs of infection. - Neurological Exam Neurological Exam: Alert, Awake, Oriented x3 - Psychiatric Exam Psychiatric exam: Normal Affect, Normal Mood Assessment and Plan - Assessment and Plan (Free Text) Assessment: 37 year old female patient seen and evaluated in [facility] for left foot mini rail removal. Plan: Pt was seen and examined in [facility] Pt NPO status was confirmed All pre-op testing and clearance in chart Pt has exhausted all conservative treatment at this time and is opting for surgical intervention Pt was explained procedure and post-operative course All pt's questions were answered to satisfaction No guarantees were made Pt understands all risks, benefits and complications of procedure Pt will follow-up with Dr. Vallejo in the podiatry clinic within 1 week of surgery
[2018-04-19] MEDS ORDERED: Bupivacaine 0.25% Inj(30mL) IJ ONE (08:41)
[2018-04-19] MEDS ORDERED: Lidocaine 1% Inj (20ml) IJ ONE (08:41)
[2018-04-19] MEDS ORDERED: Propofol 10 mg/ml Inj (20 ML) ONE (09:47)
[2018-04-19] MEDS ORDERED: Midazolam 2 MG/2 ML VIAL ONE (09:47)
[2018-04-19] MEDS ORDERED: Lidocaine 2% MPF (5 ml) Inj ONE (09:48)
[2018-04-19] MEDS ORDERED: Lactated Ringer's 1,000 ML IV ONE (10:25)
--- NOTE | 2018-04-19 11:11 | PCM.SURG1 ---
Surgeon's Initial Post Op Note - Surgeon's Notes Surgeon: Dr. Vallejo Chinchilla Farmer: Vikki Graves PGY2 Type of Anesthesia: IV Sedation, Local (20cc 0.5% marcaine) Anesthesia Administered By: Dr. Kang Pre-Operative Diagnosis: Left foot painful retained hardware Operative Findings: See dictation Post-Operative Diagnosis: Same Operation Performed: Left foot removal of external fixator Specimen/Specimens Removed: mini rail external fixator Estimated Blood Loss: EBL {In ML}: 1 Blood Products Given: N/A Drains Used: No Drains Post-Op Condition: Good Date of Surgery/Procedure: 04/19/18 Time of Surgery/Procedure: 11:11
[2018-04-19] MEDS ORDERED: Oxycodone/Acetaminophen 5/325 mg Tab PO PRN ×2 (11:12)
[2018-04-19] MEDS: HYDROmorphone 0.5 mg/0.5 ml ISec IVP PRN ×4 (11:14→12:05)
[2018-04-19] MEDS ORDERED: Lactated Ringer's 1,000 ML IV SCH (11:15)
[2018-04-19 12:10] VITALS: RESP 18
--- NOTE | 2018-04-19 13:09 | RAD ---
Date of service: I will be able or and then call me thanks 04/19/2018 PROCEDURE: Left Foot Radiographs. HISTORY: s/p removal of mini rail fixator COMPARISON: 04/05/2018 FINDINGS: BONES: No acute fracture. Solitary orthopedic screw traverses the 2nd cuneiform. Fragmentation of 1st cuneiform and scaphoid identified. JOINTS: Normal. SOFT TISSUES: Normal. OTHER FINDINGS: None. IMPRESSION: No acute findings following rail fixator removal.
[2018-04-19 15:10] VITALS: BP 120/76; PULSE 72; TEMP 98; O2SAT 97
--- NOTE | 2018-04-21 00:27 | OP ---
PROCEDURE DATE: 04/19/2018 PREOPERATIVE DIAGNOSIS: Left foot painful retained hardware, status post comminuted displaced fracture of navicular bone. POSTOPERATIVE DIAGNOSIS: Left foot painful retained hardware, status post comminuted displaced fracture of navicular bone. PROCEDURE PERFORMED: Left foot removal of hardware. SURGEON: Paul Vallejo DPM LANDSCAPE SPECIALIST: Frederick Graves DPM, PGY-2 ANESTHESIA: IV sedation local, 20 mL of 0.5% Marcaine. ANESTHESIOLOGIST: Dr. Kang. INDICATION: The patient is a 37-year-old female with the above-mentioned diagnosis. The patient is being treated by Dr. Vallejo in the Podiatry Clinic on an outpatient basis. The patient sustained a comminuted displaced fracture of the navicular of the left foot. On 01/13/2018 and on 02/08/2018, had an external fixator plate for treatment. Following consolidation of the fracture fragment, the patient is scheduled for outpatient surgery for removal of hardware. The patient signed a consent after careful explanation of risks, benefits, complications, and alternatives to procedure and wishes to proceed. No guarantees were given nor implied. N.p.o. was confirmed prior to bringing the patient to the operating room. PREPARATION: The patient was brought into the operating room and placed on the operating room table in a supine position. A time-out was performed for identification of the correct patient and procedure. A well-padded pneumatic ankle tourniquet was placed to the patient's left lower extremity in supramalleolar position. After the induction of IV sedation, a total of 20 mL of 0.5% Marcaine plain was administered in a local block fashion. Once local anesthesia was achieved, the foot was then prepped and draped in normal sterile manner. An Esmarch was used to exsanguinate the limb. The tourniquet was inflated to 250 mmHg and procedure began. DESCRIPTION OF PROCEDURE: Left foot removal of hardware. Attention was directed to the patient's left foot at the level of the midfoot where a Mini Rail external fixator was located. Utilizing a screwdriver, the Mini Rail fixator was removed from the pin inserted into the patient's foot. Following this, using a K-[employer] driver sales, five retained pins were removed from the patient's foot without incident leaving five surgical wounds, were then flushed with copious amounts of sterile saline and were not closed in order any residual bacteria to be expressed and with a plan to granulate in. Postoperative bandages included Betadine, Adaptic, and dry sterile dressing. POSTOPERATIVE CONDITION: The patient tolerated the procedure and anesthesia well and was escorted to the recovery room with vital signs stable and neurovascular status intact to the left lower extremity. The patient will follow up with Dr. Vallejo in the clinic on an outpatient basis. Frederick Graves DPM Paul Vallejo DPM
== END 2018-04-19 15:05 | disposition home or self-care (01) ==
LOC: H.OPSURG 08:27
PROVIDERS: ATTEND Podiatrist Foot & Ankle Surgery
DX: S92.252D Displaced fracture of navicular [scaphoid] of left foot, subsequent encounter for fracture with routine healing (principal); X58.XXXD Exposure to other specified factors, subsequent encounter; M19.90 Unspecified osteoarthritis, unspecified site; T84.84XA Pain due to internal orthopedic prosthetic devices, implants and grafts, initial encounter
CPT/HCPCS: 20680; 20694; 73630; 88304; J0690; J1170; J2250; J2405; J2704; J3010; J7030; J7120

== ENCOUNTER 2018-04-30 09:20 | Emergency (ER) | payer MEDICAID ==
[2018-04-30 09:21] VITALS: BMI 35.4
[2018-04-30 09:24] VITALS: BP 117/79; PULSE 85; RESP 18; TEMP 98.1; O2SAT 99
--- NOTE | 2018-04-30 09:36 | ED PDOC ---
HPI: General Adult Time Seen by Provider: 04/30/18 09:30 Chief Complaint (Provider): Medical and Psychiatric Clearance History Per: Patient History/Exam Limitations: no limitations Additional Complaint(s): 37 years old female presents to ER requesting medical and psychiatric clearance in order to participate in outpatient health program. Patient recently had surgery on left foot and cleared by podiatry. PMD: Reji Weir Past Medical History Reviewed: Historical Data, Nursing Documentation, Vital Signs Vital Signs: Last Vital Signs Temp 98.1 F 04/30/18 09:23 Pulse 85 04/30/18 09:23 Resp 18 04/30/18 09:23 BP 117/79 04/30/18 09:23 Pulse Ox 99 04/30/18 09:23 - Medical History PMH: Anemia, Anxiety, Arthritis (BOTH KNEES), Bipolar Disorder, Depression, Fractures (LEFT FOOT-2006;2015), Post Traumatic Stress Disorder Denies: Diabetes, Hepatitis, HIV, HTN, Chronic Kidney Disease, Seizures, Sexually Transmitted Disease - Surgical History Surgical History: Tonsillectomy Other surgeries: Left foot surgery - Family History Family History: States: Unknown Family Hx - Immunization History Hx Tetanus Toxoid Vaccination: No Hx Influenza Vaccination: No Hx Pneumococcal Vaccination: No - Home Medications Home Medications: Ambulatory Orders Medication Instructions Recorded Bupropion HCl [Wellbutrin Sr] 150 mg PO DAILY 02/08/18 Nicotine 21 mg/24 hr [Nicoderm CQ] 21 mg TD DAILY MDD 2 patch 02/08/18 Hydrocodone/Acetaminophen [Vicodin 1 tab PO .Q4-6 PRN 04/19/18 5 mg-300 mg] - Allergies Allergies/Adverse Reactions: Allergies Allergy/AdvReac Type Severity Reaction Status Date / Time No Known Allergies Allergy Verified 04/14/18 12:46 Review of Systems ROS Statement: Except As Marked, All Systems Reviewed And Found Negative Constitutional: Positive for: Other (Medical and psychiatric clearance) Physical Exam - Reviewed Nursing Documentation Reviewed: Yes Vital Signs Reviewed: Yes - Physical Exam Appears: Positive for: Well, No Acute Distress Head Exam: Positive for: ATRAUMATIC, NORMOCEPHALIC Skin: Positive for: Normal Color, Warm, Dry Eye Exam: Positive for: Normal appearance, EOMI, PERRL Neck: Positive for: Normal, Painless ROM, Supple Cardiovascular/Chest: Positive for: Regular Rate, Rhythm. Negative for: Murmur Respiratory: Positive for: Normal Breath Sounds. Negative for: Wheezing Gastrointestinal/Abdominal: Positive for: Normal Exam, Soft. Negative for: Tenderness Back: Positive for: Normal Inspection. Negative for: L CVA Tenderness, R CVA Tenderness Extremity: Positive for: Normal ROM, Other (Left foot surgical wound). Negative for: Pedal Edema, Swelling Neurologic/Psych: Positive for: Alert, Oriented (x3) - ECG O2 Sat by Pulse Oximetry: 99 (RA) Pulse Ox Interpretation: Normal Medical Decision Making Medical Decision Making: Time: 934 Initial plan: --Crisis evaluation - Scribe Attestation: Documented by Janay Reyes, acting as a scribe for Andrews Da Silva MD. Provider Scribe Attestation: All medical record entries made by the Scribe were at my direction and personally dictated by me. I have reviewed the chart and agree that the record accurately reflects my personal performance of the history, physical exam, medical decision making, and the department course for this patient. I have also personally directed, reviewed, and agree with the discharge instructions and disposition. Disposition - Clinical Impression Clinical Impression: Depression - Patient ED Disposition Is Patient to be Admitted: No Counseled Patient/Family Regarding: Diagnosis, Need For Followup - Disposition Disposition: Routine/Home Disposition Time: 10:16 Condition: FAIR Additional Instructions: Medically and psychiatrically stable to participate in outpatient mental health program Instructions: Depression
== END 2018-04-30 10:32 | disposition home or self-care (01) ==
LOC: H.ER 09:20
DX: F32.9 Major depressive disorder, single episode, unspecified (principal)

== ENCOUNTER 2018-07-13 11:46 | Emergency (ER) | payer MEDICAID ==
[2018-07-13 11:49] VITALS: BP 128/75; PULSE 83; RESP 15; TEMP 98.2; O2SAT 98
[2018-07-13 11:50] VITALS: BMI 35.6
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
== END 2018-07-13 14:15 | disposition home or self-care (01) ==
LOC: H.ER 11:46
DX: S00.83XA Contusion of other part of head, initial encounter (principal); S09.90XA Unspecified injury of head, initial encounter; Z76.0 Encounter for issue of repeat prescription; F41.9 Anxiety disorder, unspecified; F43.10 Post-traumatic stress disorder, unspecified; Z86.59 Personal history of other mental and behavioral disorders; F90.9 Attention-deficit hyperactivity disorder, unspecified type; Z79.899 Other long term (current) drug therapy